=== PATIENT | male | born 1990 | race Caucasian/White ===

== ENCOUNTER 2016-10-05 19:53 | Emergency (ER) | payer SELFPAY ==
[~2016-10-05] VITALS: Ht 175.3 cm; Wt 68.0 kg
[2016-10-05] MEDS ORDERED: HYDROCODONE/ACETAMINOPHEN 5-325 MG TABLET PO ONE (21:00)
[2016-10-05] MEDS ORDERED: KETOROLAC TROMETHAMINE 60 MG/2 ML VIAL IM ONE (21:00)
[2016-10-05] MEDS ORDERED: LIDOCAINE HCL BUFFERED 1% 20 ML VIAL INJ ONE (21:00)
[2016-10-05] MEDS ORDERED: DOXYCYCLINE 100 MG CAPSULE PO ONE (21:15)
[2016-10-05] MEDS ORDERED: CEPHALEXIN MONOHYDRATE 500 MG CAPSULE PO ONE (21:15)
[2016-10-05 22:17] VITALS: BP 126/73
== END 2016-10-05 22:18 | disposition home or self-care (01) ==
LOC: EMS 19:59
DX: S91.311A Laceration without foreign body, right foot, initial encounter (principal); L73.9 Follicular disorder, unspecified; F17.210 Nicotine dependence, cigarettes, uncomplicated; W25.XXXA Contact with sharp glass, initial encounter; Y93.89 Activity, other specified; Y92.89 Other specified places as the place of occurrence of the external cause; Y99.8 Other external cause status
CPT/HCPCS: 73630; 96372; 99284; J1885; J3490; 96374

== ENCOUNTER 2016-11-04 18:11 | Emergency (ER) | payer SELFPAY ==
[~2016-11-04] VITALS: Ht 170.2 cm; Wt 70.5 kg
[2016-11-04] MEDS ORDERED: LIDOCAINE HCL BUFFERED 1% 20 ML VIAL INJ ONE (19:45)
[2016-11-04] MEDS ORDERED: POVIDONE-IODINE 10% 15 ML SOLUTION UD TP ONE (19:45)
[2016-11-04] MEDS ORDERED: IBUPROFEN 800 MG TABLET PO ONE (19:45)
[2016-11-04 19:54] VITALS: BP 126/86
[2016-11-04] MEDS ORDERED: BACITRACIN 0.9 GM PACKET OINTMENT TP ONE (20:45)
== END 2016-11-04 20:59 | disposition home or self-care (01) ==
LOC: EMS 18:13
DX: S61.411A Laceration without foreign body of right hand, initial encounter (principal); F17.210 Nicotine dependence, cigarettes, uncomplicated; X58.XXXA Exposure to other specified factors, initial encounter; Y93.89 Activity, other specified; Y99.8 Other external cause status; Y92.89 Other specified places as the place of occurrence of the external cause
CPT/HCPCS: 12001; 99283; J3490

== ENCOUNTER 2020-05-31 20:14 | Emergency (ER) | payer OTHER ==
[~2020-05-31] VITALS: Ht 172.7 cm; Wt 77.3 kg
[2020-05-31 21:47] VITALS: BP 123/77
== END 2020-05-31 23:03 | disposition left against medical advice (07) ==
LOC: EMS 20:14
DX: S20.211A Contusion of right front wall of thorax, initial encounter (principal); F17.210 Nicotine dependence, cigarettes, uncomplicated; W19.XXXA Unspecified fall, initial encounter; Y93.89 Activity, other specified; Y92.89 Other specified places as the place of occurrence of the external cause; Y99.8 Other external cause status
CPT/HCPCS: Z7502

== ENCOUNTER 2020-09-19 17:46 | Emergency (ER) | payer OTHER | END 2020-09-19 17:55 | disposition left against medical advice (07) | LOC: EMS 17:47 | DX: M79.669 Pain in unspecified lower leg (principal); Z53.21 Procedure and treatment not carried out due to patient leaving prior to being seen by health care provider ==

== ENCOUNTER 2021-12-29 13:08 | Emergency (ER) | payer MEDICAID, OTHER ==
[~2021-12-29] VITALS: Ht 175.3 cm; Wt 77.3 kg
[2021-12-29 14:02] LABS: COVID AG,FIA SOURCE NASAL SWAB
[2021-12-29 14:34] LABS: INFLUENZA TYPE A NEGATIVE FOR TYPE A (NEGATIVE); INFLUENZA TYPE B NEGATIVE FOR TYPE B (NEGATIVE)
[2021-12-29 15:21] VITALS: BP 132/68
== END 2021-12-29 21:07 | disposition home or self-care (01) ==
LOC: EMS 13:08
DX: J06.9 Acute upper respiratory infection, unspecified (principal); F41.9 Anxiety disorder, unspecified; F17.210 Nicotine dependence, cigarettes, uncomplicated; Z20.822 Contact with and (suspected) exposure to COVID-19
CPT/HCPCS: 87804; 99283

== ENCOUNTER 2023-02-23 17:20 | Emergency (ER) | payer MEDICAID, OTHER ==
[~2023-02-23] VITALS: Ht 172.7 cm; Wt 68.2 kg
[2023-02-23 17:57] VITALS: TEMP 98.8
[2023-02-23] MEDS ORDERED: LIDOCAINE 1%/EPI 1:200,000/PF 30 ML VIAL SQ ONE (18:15)
[2023-02-23] MEDS ORDERED: PERTUSS(ACELL),DIPH,TET VAC/PF 0.5 ML SYRINGE IM. ONE (18:15)
[2023-02-23] MEDS ORDERED: BACITRACIN 0.9 GM PACKET OINTMENT TP ONE (18:30)
[2023-02-23 18:50] VITALS: BP 120/83; PULSE 75; RESP 12
== END 2023-02-23 19:05 | disposition home or self-care (01) ==
LOC: EMS 17:20
DX: S40.852A Superficial foreign body of left upper arm, initial encounter (principal); F17.210 Nicotine dependence, cigarettes, uncomplicated; Z98.890 Other specified postprocedural states; W45.8XXA Other foreign body or object entering through skin, initial encounter; Y93.89 Activity, other specified; Y92.89 Other specified places as the place of occurrence of the external cause; Y99.8 Other external cause status
CPT/HCPCS: 99285; 90715; 90471; 12001; J3490